=== PATIENT | male | born 1990 | race Caucasian/White ===

== ENCOUNTER 2019-11-09 21:25 | Emergency (ER) | payer SELFPAY ==
[2019-11-09] MEDS ORDERED: HYDROMORPHONE HCL 0.5 MG/0.5 ML INJ ONE (21:50)
[2019-11-09] MEDS ORDERED: ONDANSETRON 4 MG/2 ML VIAL ONE (21:50)
[2019-11-09] MEDS ORDERED: KETOROLAC 30 MG/ML INJ ONE (21:50)
[2019-11-09] MEDS ORDERED: NA CHLORIDE 0.9% 1,000 ML ONE (21:50)
[2019-11-09 22:03] LABS: Absolute Lymphocytes (CBC) 2.9 K/uL (0.7-4.9); Basophils % 0.5 % (0-1.3); Hematocrit 46.4 % (39.6-49.0); Lymphocytes % 26.8 % (15.3-44.8); MPV 8.8 fL (7.6-11.3); RBC Red Blood Cell Count 5.58 M/uL (4.33-5.43)
[2019-11-09] MEDS ORDERED: TAMSULOSIN 0.4 MG SR CAP ONE (22:18)
[2019-11-09 22:20] LABS: Albumin 4.2 g/dL (3.4-5.0); Bilirubin Direct 0.1 mg/dL (0-0.2); Bilirubin Total 0.6 mg/dL (0.2-1.0); Potassium 3.6 mmol/L (3.5-5.1); Protein, Total 7.9 g/dL (6.4-8.2)
[2019-11-10] MEDS ORDERED: NA CHLORIDE 0.9% 1,000 ML ONE (00:36)
--- NOTE | 2019-11-10 01:56 | ER ---
Nurse's Notes [facility] Name: Ras Ferrari Age: 29 yrs Sex: Male : 1990 Arrival Date: 11/09/2019 Time: 21:28 Bed 6 Private MD: Byron Westbrook Diagnosis: Hydronephrosis with renal and ureteral calculous obstruction Presentation: 11/08 21:31 Chief complaint: Patient states: "I was eating dinner and all the sudden I got sharp aj1 pain in my lower back and in my stomach all over" Reports nausea. Denies N/D. Denies dysuria. Coronavirus screen: The patient has NOT traveled to a country currently being monitored by the CDC within the last 14 days. Ebola Screen: Patient denies travel to an Ebola-affected area in the 21 days before illness onset. Initial Sepsis Screen: Does the patient meet any 2 criteria? No. Patient's initial sepsis screen is negative. Does the patient have a suspected source of infection? Yes: Acute abdominal pain. Risk Assessment: Do you want to hurt yourself or someone else? Patient reports no desire to harm self or others. 21:31 Method Of Arrival: Wheelchair aj1 21:37 Acuity: DEANNA 3 aj1 Triage Assessment: 21:33 General: Appears uncomfortable, Behavior is cooperative, anxious, restless. Pain: aj1 Complains of pain in low back area and abdomen Pain currently is 10 out of 10 on a pain scale. Neuro: Level of Consciousness is awake, alert, obeys commands. Cardiovascular: Patient's skin is warm and dry. Respiratory: Airway is patent Respiratory effort is even, unlabored, Respiratory pattern is regular, symmetrical. Historical: - Allergies: 21:33 Lidocaine; aj1 21:33 Novocain; aj1 21:33 PENICILLINS; aj1 21:33 Suprax; aj1 - Home Meds: 21:33 None [Active]; aj1 - PMHx: 21:33 Kidney stones; aj1 - Immunization history:: Flu vaccine is up to date. - Social history:: Smoking status: Patient/guardian denies using tobacco. Screenin:57 Abuse screen: Denies threats or abuse. Nutritional screening: No deficits noted. ll1 Tuberculosis screening: No symptoms or risk factors identified. Fall Risk None identified. Total Byers Fall Scale indicates No Risk (0-24 pts). Assessment: 21:55 General: Appears uncomfortable, Behavior is calm, cooperative. Pain: Complains of pain ll1 in back and abdomen Pain currently is 10 out of 10 on a pain scale. Quality of pain is described as aching. GI: Abdomen is round Bowel sounds present X 4 quads. Abd is soft and non tender Abd is soft Reports lower abdominal pain, nausea. 22:50 Reassessment: No changes from previously documented assessment. Patient and/or family ll1 updated on plan of care and expected duration. Pain level reassessed. Patient is alert, oriented x 3, equal unlabored respirations, skin warm/dry/pink. Patient states feeling better. 23:29 Reassessment: Patient appears in no apparent distress at this time. Patient and/or ll1 family updated on plan of care and expected duration. Pain level reassessed. Patient is alert, oriented x 3, equal unlabored respirations, skin warm/dry/pink. Awaiting urine sample. Patient verbalized understanding. 11/09 02:10 Reassessment: Patient appears in no apparent distress at this time. Patient and/or jd3 family updated on plan of care and expected duration. Pain level reassessed. Patient is alert, oriented x 3, equal unlabored respirations, skin warm/dry/pink. patient and family verbalized understanding of discharge instructions. even and steady gait upon discharge. Vital Signs: 11/08 21:33 BP 131 / 57; Pulse 82; Resp 18; Temp 97.4; Pulse Ox 99% on R/A; Weight 111.58 kg (R); aj1 Height 5 ft. 10 in. (177.80 cm) (R); Pain 10/10; 22:15 BP 117 / 82; Pulse 62; Resp 17; Pulse Ox 98% ; Pain 2/10; ll1 23:32 BP 115 / 73; Pulse 71; Resp 18; Pulse Ox 98% ; ll1 11/09 02:12 BP 113 / 72; Pulse 77; Resp 18; Pulse Ox 97% on R/A; Pain 3/10; jd3 11/08 21:33 Body Mass Index 35.30 (111.58 kg, 177.80 cm) aj ED Course: 11/08 21:28 Patient arrived in ED. 21:29 Byron Westbrook MD is Private Physician. es 21:31 Santosh Patel FNP-C is [facility]. la1 21:31 Christos Sherman MD is Attending Physician. la1 21:33 Arm band placed on Patient placed in an exam room. aj1 21:37 Triage completed. aj1 21:54 Cynthia Mello, ELVIRA is Primary Nurse. ll1 21:57 Patient has correct armband on for positive identification. ll1 23:34 No provider procedures requiring assistance completed. ll1 03 00:52 CT Stone Protocol In Process Unspecified. EDMS 02:13 IV discontinued, intact, bleeding controlled, No redness/swelling at site. Pressure jd3 dressing applied. Administered Medications: 11/08 21:53 Drug: Dilaudid 0.5 mg {Note: RASS 0.} Route: IVP; Site: right antecubital; ll1 23:31 Follow up: Response: No adverse reaction; Pain is decreased ll1 23:31 Follow up: Response: No adverse reaction; RASS: Drowsy (-1) ll1 21:53 Drug: Zofran (Ondansetron) 4 mg Route: IVP; Site: right antecubital; ll1 23:30 Follow up: Response: No adverse reaction; Nausea is decreased ll1 21:54 Drug: TORadol - Ketorolac 15 mg Route: IVP; Site: right antecubital; ll1 23:32 Follow up: Response: No adverse reaction; Pain is decreased ll1 21:54 Drug: NS 0.9% 1000 ml Route: IV; Rate: 1000 ml; Site: right antecubital; ll1 23:31 Follow up: Response: No adverse reaction; RASS: Drowsy (-1); IV Status: Completed ll1 infusion 22:16 Drug: Flomax 0.4 mg Route: PO; ll1 23:30 Follow up: Response: No adverse reaction ll1 Outcome: 11/09 01:54 Discharge ordered by . la1 02:13 Discharged to home ambulatory, with family. jd3 02:13 Condition: stable 02:13 Discharge instructions given to patient, family, Instructed on discharge instructions, follow up and referral plans. medication usage, Demonstrated understanding of instructions, follow-up care, medications, Prescriptions given X 3. 02:15 Patient left the ED. jd3 Signatures: Dispatcher [employer] EDTherese Albert RN RN aj1 Jolly Alicea Lee, MICROFILMER-C MICROFILMER-Cla1 Oneal Potts, RN RN jd3 Cynthia Mello RN RN ll1
--- NOTE | 2019-11-10 01:56 | EDPHYS ---
Physician Documentation [facility] Name: Ras Ferrari Age: 29 yrs Sex: Male : 1990 Arrival Date: 11/09/2019 Time: 21:28 Bed 6 Private MD: Byron Westbrook ED Physician Christos Sherman HPI: 11/08 21:58 This 29 yrs old Male presents to ER via Wheelchair with complaints of Back la1 Pain, Abdominal Pain. 21:58 The patient complains of pain in the mid back area. The pain radiates to the abdomen. la1 Onset: The symptoms/episode began/occurred just prior to arrival. Modifying factors: The symptoms are alleviated by nothing. the symptoms are aggravated by nothing. Associated signs and symptoms: Pertinent negatives: dysuria, fever. Severity of pain: At its worst the pain was severe. The patient has experienced similar episodes in the past. pt reports he was eating dinner and had sudden onset severe flank pain. Reports hx of kidney stones. . Historical: - Allergies: 21:33 Lidocaine; aj1 21:33 Novocain; aj1 21:33 PENICILLINS; aj1 21:33 Suprax; aj1 - Home Meds: 21:33 None [Active]; aj1 - PMHx: 21:33 Kidney stones; aj1 - Immunization history:: Flu vaccine is up to date. - Social history:: Smoking status: Patient/guardian denies using tobacco. ROS: 21:59 Constitutional: Negative for fever, chills, and weight loss, Eyes: Negative for injury, la1 pain, redness, and discharge, ENT: Negative for injury, pain, and discharge, Neck: Negative for injury, pain, and swelling, Cardiovascular: Negative for chest pain, palpitations, and edema, Respiratory: Negative for shortness of breath, cough, wheezing, and pleuritic chest pain. 21:59 Back: Negative for injury and pain, : Negative for injury, bleeding, discharge, and swelling, MS/Extremity: Negative for injury and deformity, Neuro: Negative for headache, weakness, numbness, tingling, and seizure. 21:59 Abdomen/GI: Positive for abdominal pain. Exam: 21:59 Constitutional: This is a well developed, well nourished patient who is awake, alert, la1 and in no acute distress. Head/Face: Normocephalic, atraumatic. Eyes: Pupils equal round and reactive to light, extra-ocular motions intact. Lids and lashes normal. Conjunctiva and sclera are non-icteric and not injected. Cornea within normal limits. Periorbital areas with no swelling, redness, or edema. Chest/axilla: Normal chest wall appearance and motion. Nontender with no deformity. No lesions are appreciated. Cardiovascular: Regular rate and rhythm with a normal S1 and S2. No gallops, murmurs, or rubs. Normal PMI, no JVD. No pulse deficits. Respiratory: Lungs have equal breath sounds bilaterally, clear to auscultation 21:59 Abdomen/GI: Inspection: obese Bowel sounds: normal, in all quadrants, Palpation: abdomen is soft and non-tender, in all quadrants, Indicators: McBurney's point is not tender, Junior's sign is negative, Rovsing's sign is negative, Obturator sign is negative, Psoas sign is negative. Vital Signs: 21:33 BP 131 / 57; Pulse 82; Resp 18; Temp 97.4; Pulse Ox 99% on R/A; Weight 111.58 kg (R); aj1 Height 5 ft. 10 in. (177.80 cm) (R); Pain 10/10; 22:15 BP 117 / 82; Pulse 62; Resp 17; Pulse Ox 98% ; Pain 2/10; ll1 23:32 BP 115 / 73; Pulse 71; Resp 18; Pulse Ox 98% ; ll1 /07 02:12 BP 113 / 72; Pulse 77; Resp 18; Pulse Ox 97% on R/A; Pain 3/10; jd3 03/ 21:33 Body Mass Index 35.30 (111.58 kg, 177.80 cm) aj1 MDM: 11/08 21:34 Patient medically screened. la1 22:46 Data reviewed: vital signs, nurses notes, lab test result(s), radiologic studies, I la1 have discussed the patient's presentation/case with the attending Emergency Department Physician; and as a result, I will discharge patient. Data interpreted: Pulse oximetry: on room air is 99 %. Interpretation: normal. Counseling: I had a detailed discussion with the patient and/or guardian regarding: the historical points, exam findings, and any diagnostic results supporting the discharge/admit diagnosis, lab results, radiology results, the need for outpatient follow up, a urologist, to return to the emergency department if symptoms worsen or persist or if there are any questions or concerns that arise at home. Special discussion: Based on the patient's Hx, exam, and Dx evaluation, there is no indication for emergent surgery or inpatient Tx. It is understood by the patient/guardian that if the Sx's persist or worsen they need to return immediately for re-evaluation. Based on the history and exam findings, there is no indication for further emergent testing or inpatient evaluation. I discussed with the patient/guardian the need to see the urologist for further evaluation of the symptoms. 11/08 21:39 Order name: Basic Metabolic Panel [facility] 11/08 21:39 Order name: CBC with Diff la11/08 21:39 Order name: Hepatic Function la1 11/08 21:39 Order name: Lipase [facility] 11/08 22:14 Order name: CBC with Automated Diff; Complete Time: 22:37 EDMS 11/08 22:21 Order name: Basic Metabolic Panel; Complete Time: 22:37 EDMS 11/08 21:39 Order name: CT Stone Protocol la1 11/08 22:21 Order name: Liver (Hepatic) Function; Complete Time: 22:37 EDMS 11/08 22:21 Order name: Lipase; Complete Time: 22:37 EDMS 11/08 21:39 Order name: IV Saline Lock; Complete Time: 02:14 la1 11/08 21:39 Order name: Labs collected and sent; Complete Time: 02:14 la1 11/08 21:39 Order name: Urine Dipstick-Ancillary (obtain specimen); Complete Time: 00:40 la1 Administered Medications: 21:53 Drug: Dilaudid 0.5 mg {Note: RASS 0.} Route: IVP; Site: right antecubital; ll1 23:31 Follow up: Response: No adverse reaction; Pain is decreased ll1 23:31 Follow up: Response: No adverse reaction; RASS: Drowsy (-1) ll1 21:53 Drug: Zofran (Ondansetron) 4 mg Route: IVP; Site: right antecubital; ll1 23:30 Follow up: Response: No adverse reaction; Nausea is decreased ll1 21:54 Drug: TORadol - Ketorolac 15 mg Route: IVP; Site: right antecubital; ll1 23:32 Follow up: Response: No adverse reaction; Pain is decreased ll1 21:54 Drug: NS 0.9% 1000 ml Route: IV; Rate: 1000 ml; Site: right antecubital; ll1 23:31 Follow up: Response: No adverse reaction; RASS: Drowsy (-1); IV Status: Completed ll1 infusion 22:16 Drug: Flomax 0.4 mg Route: PO; ll1 23:30 Follow up: Response: No adverse reaction 1 Disposition: 11/09 06:37 Co-signature as Attending Physician, Christos Sherman MD. pkl Disposition: 11/10/19 01:54 Discharged to Home. Impression: Hydronephrosis with renal and ureteral calculous obstruction. - Condition is Stable. - Discharge Instructions: Kidney Stones, Hydronephrosis. - Prescriptions for Tylenol- Codeine #3 300-30 mg Oral Tablet - take 2 tablets by ORAL route every 6 hours As needed; 20 tablet. Zofran 4 mg Oral Tablet - take 1 tablet by ORAL route every 12 hours As needed; 6 tablet. Flomax 0.4 mg Oral Capsule, Sust. Release 24 hr - take 1 capsule by ORAL route once daily for 14 days 1/2 hour following the same meal each day; 14 capsule. - Medication Reconciliation Form, Thank You Letter, Antibiotic Education, Prescription Opioid Use form. - Follow up: Private Physician; When: 2 - 3 days; Reason: Recheck today's complaints, Re-evaluation by your physician. - Problem is new. - Symptoms have improved. Signatures: Dispatcher [employer] Therese Albert RN RN aj1 Christos Sherman MD MD pkl Santosh Patel, OFFICE MACHINE SERVICER APPRENTICE-C OFFICE MACHINE SERVICER APPRENTICE-Cla1 Oneal Potts RN RN jd3 Lewis, Lynsay, RN RN ll1 Corrections: (The following items were deleted from the chart) 02:15 01:54 11/10/2019 01:54 Discharged to Home. Impression: Hydronephrosis with renal and jd3 ureteral calculous obstruction. Condition is Stable. Discharge Instructions: Kidney Stones, Hydronephrosis. Prescriptions for Tylenol-Codeine #3 300-30 mg Oral Tablet - take 2 tablets by ORAL route every 6 hours As needed; 20 tablet, Zofran 4 mg Oral Tablet - take 1 tablet by ORAL route every 12 hours As needed; 6 tablet, Flomax 0.4 mg Oral Capsule, Sust. Release 24 hr - take 1 capsule by ORAL route once daily for 14 days 1/2 hour following the same meal each day; 14 capsule. and Forms are Medication Reconciliation Form, Thank You Letter, Antibiotic Education, Prescription Opioid Use. Follow up: Private Physician; When: 2 - 3 days; Reason: Recheck today's complaints, Re-evaluation by your physician. Problem is new. Symptoms have improved. la1
[2019-11-10 02:20] VITALS: TEMP 97.4
[2019-11-10 02:25] VITALS: BP 113/72; O2SAT 97
--- NOTE | 2019-11-12 13:17 | RAD REPORT ---
EXAM DESCRIPTION: CT - Stone Protocol - 11/09/2019 10:42 pm CLINICAL HISTORY: Lower back pain. Nausea. Assess for obstructive uropathy. TECHNIQUE: CT scan of the abdomen and pelvis was performed without intravenous contrast. Stone sukumar col was utilized. 3.0 mm axial images were obtained along with coronal and sagittal reformatted image s. DOSE OPTIMIZATION: This facility uses dose optimization techniques as appropriate to perform exams, including at least one of the following techniques: 1. Automated exposure control. 2. Adjustment of the mA and/or kV according to patient size (this includes techniques or standardized protocols for targeted exams where dose is matched to the indication/reason for exam, i.e. extremiti es or head). 3. Use of iterative reconstructive technique. COMPARISON: None. FINDINGS: Lung Bases: Normal. Liver: Normal. Spleen: Normal. Pancreas: Normal. Gallbladder: Normal. Adrenal Glands: Normal. Right Kidney: There is mild hydronephrosis secondary to a stone in the proximal right ureter at the L 2-3 interspace level. The stone measures 0.3 x 0.2 cm. Left Kidney: Normal. Right Ureter: Normal. Left Ureter: Normal. Urinary Bladder: Normal. Retroperitoneal Structures: Normal. Bowel Survey: Normal. Prostate Gland: Normal in size. Peritoneal Cavity: Normal. Mesenteric Structures: Normal. Abdominal Wall: There is a tiny umbilical hernia containing fat. Bony Structures: No suspicious lesions. IMPRESSION: 1. Mild right hydronephrosis secondary to a small stone in the proximal right ureter. Electronically signed by: Mike Fairbanks MD 11/09/2019 10:33 PM CONNECTION WORKER Due to temporary technical issues with the PACS/Fluency reporting system, reports are being signed by the in house radiologist as a courtesy to ensure prompt reporting. The interpreting radiologist is f ully responsible for the content of the report.
== END 2019-11-10 02:15 | disposition home or self-care (01) ==
LOC: ER 21:25
DX: N13.2 Hydronephrosis with renal and ureteral calculous obstruction (principal); Z88.0 Allergy status to penicillin; Z88.4 Allergy status to anesthetic agent; Z88.5 Allergy status to narcotic agent; Z88.8 Allergy status to other drugs, medicaments and biological substances
CPT/HCPCS: 36415; 74176; 76377; 80048; 80076; 83690; 85025; 96361; 96374; 96375; 99283; J1170; J2405; J7030